=== PATIENT | female | born 1985 | race Hispanic/Latino ===

== ENCOUNTER 2020-01-07 17:32 | Emergency (ER) | payer SELFPAY ==
[2020-01-07 18:24] LABS: Urine Specific Gravity >1.030 (1.005-1.030)
[2020-01-07 18:24] LABS: Urine Blood NEGATIVE (NEG); Urine Glucose TRACE (NEG); Urine Protein 3+ (NEG); Urine Specific Gravity >1.030 (1.005-1.030)
[2020-01-07 18:27] LABS: Absolute Lymphocytes (CBC) 1.3 K/uL (0.7-4.9); Basophils % 0.5 % (0-1.3); Hematocrit 41.1 % (36.0-45.0); Lymphocytes % 11.3 % (15.3-44.8); MPV 8.8 fL (7.6-11.3); RBC Red Blood Cell Count 4.53 M/uL (3.86-4.86)
[2020-01-07 18:29] LABS: Protime INR 1.1
[2020-01-07 18:52] LABS: ALT/SGPT 193 U/L (12-78); AST/SGOT 229 U/L (15-37); Albumin 3.1 g/dL (3.4-5.0); Alkaline Phosphatase 133 U/L (45-117); BUN Blood Urea Nitrogen 12 mg/dL (7-18); Bicarbonate 27 mmol/L (21-32); Bilirubin Direct 0.2 mg/dL (0-0.2); Bilirubin Total 0.6 mg/dL (0.2-1.0); Glucose Level 303 mg/dL (74-106); Potassium 3.7 mmol/L (3.5-5.1); Protein, Total 7.3 g/dL (6.4-8.2); Sodium Level 136 mmol/L (136-145)
--- NOTE | 2020-01-07 19:28 | ER ---
Nurse's Notes [facility] Name: Mallika Martinez Age: 34 yrs Sex: Female : 1985 Arrival Date: 01/07/2020 Time: 17:42 Bed 18 Private MD: Diagnosis: Major depressive disorder, recurrent;Suicidal ideations;Type 2 diabetes mellitus Presentation: 01/07 17:52 Transition of care: patient was not received from another setting of care. Onset of ca1 symptoms was January 07, 2020. Risk Assessment: Do you want to hurt yourself or someone else? Patient reports desire/thoughts of hurting themselves or someone else. Provider notified. Initial Sepsis Screen: Does the patient meet any 2 criteria? No. Patient's initial sepsis screen is negative. Does the patient have a suspected source of infection? No. Patient's initial sepsis screen is negative. Care prior to arrival: None. 17:52 Method Of Arrival: Ambulatory ca1 17:52 Acuity: MANOLO 2 ca1 17:53 Presenting complaint: Brought in by [facility] [place] [place] States, "pt had verbal ca1 altercation with all day, wants divorce, they have been having marital problems for some time now. 45 minutes ago, pt went to their house kitchen and grabbed a packaging coordinator from 1 of the drawers. Her 16 yo son witness and stopped her from getting the knife. She then told her son that is going to kill herself. The son called us and told us that his mom was going to kill herself. We came and the pt confirmed what the son reported. Pt has no medical insurance. Pt is a [facility] pt, has a history of depression, and was prescribed and taking meds. She reports she ran out of those meds and she doesn't have a scheduled appointment any time soon. [employer]: 18:22 LMP 12/22/2019 ca1 Historical: - Allergies: 18:22 No Known Allergies; ca1 - Home Meds: 18:22 Metformin Oral [Active]; Insulin: Novolin R Sub-Q [Active]; Insulin: Novolin N Sub-Q ca1 [Active]; Hydroxyzine Oral [Active]; trazodone Oral [Active]; paroxetine oral oral [Active]; - PMHx: 18:22 Anemia; Diabetes - NIDDM; Diabetes - IDDM; HEART FAILURE; Hypertension; ca1 - PSHx: 18:22 ; ca1 - Immunization history:: Adult Immunizations up to date, Flu vaccine is not up to date. - Coronavirus screen:: The patient has NOT traveled to [place] in the past 14 days. The patient has NOT had contact with known/suspected case of Coronavirus?. - Social history:: Smoking status: Patient denies any tobacco usage or history of. Patient uses alcohol, but reports only rare drinking. admits to "couple of beers" a day. Patient/guardian denies using street drugs, IV drugs. - Ebola Screening: : Patient negative for fever greater than or equal to 101.5 degrees Fahrenheit, and additional compatible Ebola Virus Disease symptoms Patient denies exposure to infectious person Patient denies travel to an Ebola-affected area in the 21 days before illness onset No symptoms or risks identified at this time. Screenin:23 Abuse screen: Denies threats or abuse. Denies injuries from another. Nutritional ca1 screening: No deficits noted. Tuberculosis screening: No symptoms or risk factors identified. Fall Risk IV access (20 points). Assessment: 18:23 General: Appears in no apparent distress. comfortable, Behavior is calm, cooperative, ca1 appropriate for age. Pain: Denies pain. Neuro: Level of Consciousness is awake, alert, obeys commands, Oriented to person, place, time, situation, Appropriate for age. Cardiovascular: Heart tones S1 S2 present Capillary refill < 3 seconds. Respiratory: Airway is patent Respiratory effort is even, unlabored, Respiratory pattern is regular, symmetrical, Breath sounds are clear bilaterally. GI: Abdomen is round non-distended, Bowel sounds present X 4 quads. Abd is soft and non tender X 4 quads. : No deficits noted. No signs and/or symptoms were reported regarding the genitourinary system. EENT: No deficits noted. No signs and/or symptoms were reported regarding the EENT system. Derm: Skin is intact, is healthy with good turgor, Skin is pink, warm \\T\\ dry. Musculoskeletal: Circulation, motion, and sensation intact. Capillary refill < 3 seconds. 18:28 Reassessment: Pt states, "I was going to kill myself, but I am not thinking about it ca1 anymore right now". 19:10 Reassessment: Patient appears in no apparent distress at this time. Patient and/or family updated on plan of care and expected duration. Pain level reassessed. Patient is alert, oriented x 3, equal unlabored respirations, skin warm/dry/pink. 19:51 Reassessment: Patient appears in no apparent distress at this time. No changes from previously documented assessment. Patient and/or family updated on plan of care and expected duration. Pain level reassessed. Patient is alert, oriented x 3, equal unlabored respirations, skin warm/dry/pink. Psych: 18:26 Subjective: Patient's mood is sad, Delusions are denied, Hallucinations are denied ca1 Having thoughts of suicide. Plan for suicide is "is take a knife and stab myself", as pt stated. Objective: Patient is cooperative, Speech is normal, Affect is appropriate. Interventions: Removed personal items and placed in bag. Patient placed in hospital gown. Searched person for dangerous items. Urine collected and sent for urine drug test. Belonging list filled out. Suicide Risk Assessment: Sad Person Scale: Sex of patient: Female: Score 0 points. Age of patient: Score 1 point if patient 15-34. Depression: Score 1 point if signs of depression are present. Previous Attempt: Score 0 point if patient has not previously attempted suicide. Substance Abuse: Score 0 point if patient does not abuse alcohol or drugs. Rational Thinking: Score 0 point if patient has rational thinking. Social Support: Score 1 point if social support is lacking and/or unavailable. Organized Plan: Score 1 point if patient had a plan in place. Relationship: Score 1 point if patient is , , , or for a single male Chronic Sickness: Score 0 point if patient does not have a chronic illness, debilitating, or severe disorder. TOTAL POINTS: If total points are 5-6, proposed clinical action is to strongly consider hospitalization, depending upon confidence in the follow-up arrangement. Implement suicide precautions. Safety Checks: Personal items have been removed. Door is open. Pt denies substance abuse. 19:05 Commitment: Patient will be a voluntary commitment. Vital Signs: 18:22 BP 128 / 89; Pulse 89; Resp 16 S; Pulse Ox 96% on R/A; Weight 97.52 kg (R); Height 5 ca1 ft. 3 in. (160.02 cm) (R); Pain 0/10; 19:53 BP 125 / 87; Pulse 83; Resp 18; Pulse Ox 99% on R/A; 18:22 Body Mass Index 38.09 (97.52 kg, 160.02 cm) [facility] ED Course: 17:42 Patient arrived in ED. bd 17:43 Willian Cardoso MD is Attending Physician. nir 17:52 Bhumika Barrett, RN is Primary Nurse. [facility] 17:53 Triage completed. [facility] 18:00 Safety Checks: Personal items have been removed. The door is open or patient has been ca1 placed in a hallway bed/chair. Sitter present at this time. 18:15 No provider procedures requiring assistance completed. Initial lab(s) drawn, by sd, by [facility] EMS personnel. Inserted saline lock: 20 gauge in left antecubital area, using aseptic technique. Blood collected. 18:22 Arm band placed on right wrist. EKG completed in triage. Results shown to MD. [facility] 18:23 Patient has correct armband on for positive identification. Placed in gown. Bed in low ca1 position. Call light in reach. Side rails up X 1. Valuables inventory done. See valuables checklist. Warm blanket given. 19:54 IV discontinued, intact, bleeding controlled, No redness/swelling at site. Administered Medications: 19:36 Drug: Paxil 20 mg Route: PO; 19:52 Follow up: Response: No adverse reaction 19:36 Drug: Insulin Regular Human 7 units {Co-Signature: rv (Neil Moses RN).} Route: IVP; Site: left antecubital; 19:52 Follow up: Response: No adverse reaction Outcome: 19:22 Discharge ordered by . [facility] 19:54 Discharged to home ambulatory. 19:54 Condition: stable 19:54 Discharge instructions given to patient, Instructed on discharge instructions, follow up and referral plans. medication usage, POC Demonstrated understanding of instructions, follow-up care, medications, POC Prescriptions given X 1. 19:56 Patient left the ED. Signatures: Lyudmila Cantu Corey, MD MD cha Habalo, Winsy Bhumika Barrett RN RN ca1 Neil briscoe Corrections: (The following items were deleted from the chart) 19:52 19:10 Reassessment: Patient appears in no apparent distress at this time. Patient wh and/or family updated on plan of care and expected duration. Pain level reassessed. Patient is alert, oriented x 3, equal unlabored respirations, skin warm/dry/pink. wh
--- NOTE | 2020-01-07 19:29 | EDPHYS ---
Physician Documentation [facility] Name: Mallika Martinez Age: 34 yrs Sex: Female : 1985 Arrival Date: 01/07/2020 Time: 17:42 Bed 18 Private MD: ED Physician Willian Cardoso HPI: 01/07 19:09 This 34 yrs old Female presents to ER via Ambulatory with complaints of nir Suicidal Ideation. 19:09 The patient presents to the emergency department with depression, a history of a nir suicide gesture, cut herself, suicide ideation. Onset: The symptoms/episode began/occurred just prior to arrival. Past psychiatric history: Prior diagnosis: depression, Psychiatric medications include: Paxil. Associated signs and symptoms: The patient has no apparent associated signs or symptoms. Severity of symptoms: At their worst the symptoms were mild moderate in the emergency department the symptoms have improved markedly. The patient has not experienced similar symptoms in the past. 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 - Coronavirus screen:: The patient has NOT traveled to [place] in the past 14 days. The patient has NOT had contact with known/suspected case of Coronavirus?. - Social history:: Smoking status: Patient denies any tobacco usage or history of. Patient uses alcohol, but reports only rare drinking. admits to "couple of beers" a day. Patient/guardian denies using street drugs, IV drugs. - Ebola Screening: : Patient negative for fever greater than or equal to 101.5 degrees Fahrenheit, and additional compatible Ebola Virus Disease symptoms Patient denies exposure to infectious person Patient denies travel to an Ebola-affected area in the 21 days before illness onset No symptoms or risks identified at this time. ROS: 19:10 Constitutional: Negative for fever, chills, and weight loss, Eyes: Negative for injury, nir pain, redness, and discharge, ENT: Negative for injury, pain, and discharge, Neck: Negative for injury, pain, and swelling, Cardiovascular: Negative for chest pain, palpitations, and edema, Respiratory: Negative for shortness of breath, cough, wheezing, and pleuritic chest pain, Abdomen/GI: Negative for abdominal pain, nausea, vomiting, diarrhea, and constipation, Back: Negative for injury and pain, : Negative for injury, bleeding, discharge, and swelling, MS/Extremity: Negative for injury and deformity, Skin: Negative for injury, rash, and discoloration, Neuro: Negative for headache, weakness, numbness, tingling, and seizure, Allergy/Immunology: Negative for hives, rash, and allergies, Endocrine: Negative for neck swelling, polydipsia, polyuria, polyphagia, and marked weight changes, Hematologic/Lymphatic: Negative for swollen nodes, abnormal bleeding, and unusual bruising. 19:10 Psych: Positive for depression, suicide gesture, suicidal ideation. 19:11 Psych: Positive for pt in a dysfunctional relationship, not faithful,argue all nir the time. pt knows it not a sustainable relationation. Exam: 19:10 Constitutional: This is a well developed, well nourished patient who is awake, alert, nir and in no acute distress. Head/Face: Normocephalic, atraumatic. Eyes: Pupils equal round and reactive to light, extra-ocular motions intact. Lids and lashes normal. Conjunctiva and sclera are non-icteric and not injected. Cornea within normal limits. Periorbital areas with no swelling, redness, or edema. ENT: Nares patent. No nasal discharge, no septal abnormalities noted. Tympanic membranes are normal and external auditory canals are clear. Oropharynx with no redness, swelling, or masses, exudates, or evidence of obstruction, uvula midline. Mucous membranes moist. Neck: Trachea midline, no thyromegaly or masses palpated, and no cervical lymphadenopathy. Supple, full range of motion without nuchal rigidity, or vertebral point tenderness. No Meningismus. Chest/axilla: Normal chest wall appearance and motion. Nontender with no deformity. No lesions are appreciated. Cardiovascular: Regular rate and rhythm with a normal S1 and S2. No gallops, murmurs, or rubs. Normal PMI, no JVD. No pulse deficits. Respiratory: Lungs have equal breath sounds bilaterally, clear to auscultation and percussion. No rales, rhonchi or wheezes noted. No increased work of breathing, no retractions or nasal flaring. Abdomen/GI: Soft, non-tender, with normal bowel sounds. No distension or tympany. No guarding or rebound. No evidence of tenderness throughout. Back: No spinal tenderness. No costovertebral tenderness. Full range of motion. Skin: Warm, dry with normal turgor. Normal color with no rashes, no lesions, and no evidence of cellulitis. MS/ Extremity: Pulses equal, no cyanosis. Neurovascular intact. Full, normal range of motion. Neuro: Awake and alert, GCS 15, oriented to person, place, time, and situation. Cranial nerves II-XII grossly intact. Motor strength 5/5 in all extremities. Sensory grossly intact. Cerebellar exam normal. Normal gait. Psych: Awake, alert, with orientation to person, place and time. Behavior, mood, and affect are within normal limits. 19:10 Musculoskeletal/extremity: DVT Exam: No signs of deep vein thrombosis. no pain, no swelling, no tenderness, negative Homans' sign noted on exam, no appreciated bluish discoloration, no erythema, no increased warmth. Vital Signs: 18:22 BP 128 / 89; Pulse 89; Resp 16 S; Pulse Ox 96% on R/A; Weight 97.52 kg (R); Height 5 ca1 ft. 3 in. (160.02 cm) (R); Pain 0/10; 19:53 BP 125 / 87; Pulse 83; Resp 18; Pulse Ox 99% on R/A; wh 18:22 Body Mass Index 38.09 (97.52 kg, 160.02 cm) ca1 MDM: 17:43 Patient medically screened. [facility] 19:21 Data reviewed: vital signs, nurses notes, lab test result(s), EKG, radiologic studies. 01/07 17:44 Order name: Acetaminophen [facility] 01/07 17:44 Order name: Basic Metabolic Panel 01/07 17:44 Order name: CBC with Diff 01/07 17:44 Order name: ETOH Level 01/07 17:44 Order name: Hepatic Function [facility] 01/07 17:44 Order name: PT-INR [facility] 01/07 17:44 Order name: Ptt, Activated [facility] 01/07 17:44 Order name: Salicylate [facility] 01/07 17:44 Order name: Urine Drug Screen [facility] 01/07 18:09 Order name: Urine Dipstick--Ancillary (enter results) 01/07 18:10 Order name: Urine --Ancillary (enter results) 01/07 18:25 Order name: Urine Dipstick-Ancillary; Complete Time: 19:04 [facility] 01/07 18:25 Order name: Urine --Ancillary; Complete Time: 19:04 [facility] 01/07 18:29 Order name: CBC with Automated Diff; Complete Time: 19:04 [facility] 01/07 17:44 Order name: Urine Test (obtain specimen); Complete Time: 18:29 [facility] 01/07 17:44 Order name: EKG; Complete Time: 17:48 [facility] 01/07 17:44 Order name: EKG - Nurse/Tech; Complete Time: 18:29 [facility] 01/07 17:44 Order name: IV Saline Lock; Complete Time: 18:29 [facility] 01/07 17:44 Order name: Labs collected and sent; Complete Time: 18:29 [facility] 01/07 17:44 Order name: Urine Dipstick-Ancillary (obtain specimen); Complete Time: 18:29 [facility] 01/07 18:35 Order name: Protime (+INR); Complete Time: 19:04 [facility] 01/07 18:35 Order name: PTT, Activated Partial Thromb; Complete Time: 19:04 [facility] 01/07 18:52 Order name: Salicylates Level; Complete Time: 19:04 [facility] 01/07 18:53 Order name: Basic Metabolic Panel; Complete Time: 19:04 [facility] 01/07 18:53 Order name: Liver (Hepatic) Function; Complete Time: 19:04 [facility] 01/07 18:53 Order name: Acetaminophen Level; Complete Time: 19:04 EDMS Administered Medications: 19:36 Drug: Paxil 20 mg Route: PO; 19:52 Follow up: Response: No adverse reaction 19:36 Drug: Insulin Regular Human 7 units {Co-Signature: rv (Neil Moses RN).} Route: IVP; Site: left antecubital; 19:52 Follow up: Response: No adverse reaction Disposition: 01/07/20 19:22 Discharged to Home. Impression: Major depressive disorder, recurrent, Suicidal ideations, Type 2 diabetes mellitus. - Condition is Stable. - Discharge Instructions: Type 2 Diabetes Mellitus, Diagnosis, Adult, Suicidal Feelings: How to Help Yourself, Helping Someone Who is Suicidal, Stress and Stress Management, Type 2 Diabetes Mellitus, Diagnosis, Adult, [id number], Major Depressive Disorder, [id number], Major Depressive Disorder, Type 2 Diabetes Mellitus, Self Care, Adult, Type 2 Diabetes Mellitus, Self Care, Adult, [id number]. - Prescriptions for Paxil 20 mg Oral Tablet - take 1 tablet by ORAL route once daily .; 20 tablet. - Medication Reconciliation Form, Thank You Letter, Antibiotic Education, Prescription Opioid Use form. - Follow up: Private Physician; When: 2 - 3 days; Reason: Recheck today's complaints, Continuance of care, Re-evaluation by your physician. - Problem is new. - Symptoms have improved. Signatures: Dispatcher [employer] EDNY Willian Cardoso MD MD cha Habalo, Winsy Nena, REE Bai RN ca1 Neil Moses RN rv Corrections: (The following items were deleted from the chart) 19:25 19:22 01/07/2020 19:22 Discharged to Home. Impression: Major depressive disorder, nir recurrent; Suicidal ideations. Condition is Stable. Forms are Medication Reconciliation Form, Thank You Letter, Antibiotic Education, Prescription Opioid Use. Follow up: Private Physician; When: 2 - 3 days; Reason: Recheck today's complaints, Continuance of care, Re-evaluation by your physician. Problem is new. Symptoms have improved. [facility] 19:56 19:25 01/07/2020 19:22 Discharged to Home. Impression: Major depressive disorder, wh recurrent; Suicidal ideations; Type 2 diabetes mellitus. Condition is Stable. Discharge Instructions: Suicidal Feelings: How to Help Yourself, Helping Someone Who is Suicidal, Stress and Stress Management, Major Depressive Disorder, [id number], Major Depressive Disorder, Type 2 Diabetes Mellitus, Diagnosis, Adult, Type 2 Diabetes Mellitus, Diagnosis, Adult, [id number], Type 2 Diabetes Mellitus, Self Care, Adult, Type 2 Diabetes Mellitus, Self Care, Adult, [id number]. Prescriptions for Paxil 20 mg Oral Tablet - take 1 tablet by ORAL route once daily .; 20 tablet. and Forms are Medication Reconciliation Form, Thank You Letter, Antibiotic Education, Prescription Opioid Use. Follow up: Private Physician; When: 2 - 3 days; Reason: Recheck today's complaints, Continuance of care, Re-evaluation by your physician. Problem is new. Symptoms have improved. nir
[2020-01-07] MEDS ORDERED: PARoxetine HCl 10 MG TAB ONE (19:32)
[2020-01-07] MEDS ORDERED: INSULIN -REGULAR HUMAN 50 UNIT/0.5 ML ML ONE (19:35)
[2020-01-07 20:16] LABS: Barbiturates NEGATIVE (NEGATIVE); Benzodiazepines NEGATIVE (NEGATIVE); Cocaine NEGATIVE (NEGATIVE); METHAMPHETAM NEGATIVE (NEGATIVE); Methadone NEGATIVE (NEGATIVE); Opiates NEGATIVE (NEGATIVE); Phencyclidine NEGATIVE (NEGATIVE); THC Cannibis NEGATIVE (NEGATIVE)
[2020-01-07 22:55] VITALS: BP 125/87; O2SAT 99
--- NOTE | 2020-01-08 10:01 | EKG ---
Test Date: 2020-01-07 Test Time: 17:46:19 Scales Inspector: MEASUREMENT RESULTS: Intervals: Rate: 78 NV: 126 QRSD: 84 QT: 372 QTc: 424 [place]: P: 13 NV: 126 QRS: 58 T: -10 INTERPRETIVE STATEMENTS: Normal sinus rhythm T wave abnormality, consider anterior ischemia Abnormal ECG Compared to ECG 10/18/2017 23:34:58 T-wave abnormality now present Possible ischemia now present Electronically Signed On 01-08-20 10:00:23 DISC SANDER by Elgin Barrett
== END 2020-01-07 19:54 | disposition home or self-care (01) ==
LOC: ER 17:32 → ERHOLD 18:10 → UNDOADMIN 18:10 → ERHOLD 19:54
DX: F33.9 Major depressive disorder, recurrent, unspecified (principal); E11.9 Type 2 diabetes mellitus without complications; Z79.4 Long term (current) use of insulin; I10 Essential (primary) hypertension; I50.9 Heart failure, unspecified
CPT/HCPCS: 36415; 80048; 80076; 80307; 80320; 80329; 81003; 81025; 85025; 85610; 85730; 93005; 96374; 99284

== ENCOUNTER 2021-06-05 00:07 | Emergency (ER) | payer SELFPAY ==
[2021-06-05] MEDS ORDERED: LORazepam 2 MG/ML VIAL ONE (01:04)
[2021-06-05] MEDS ORDERED: LEVETIRACETAM 500 MG/5 ML VIAL IV ONE (01:12)
[2021-06-05] MEDS ORDERED: NA CHLORIDE 0.9% 100 ML ONE (01:12)
[2021-06-05 01:32] LABS: Barbiturates NEGATIVE (NEGATIVE); Benzodiazepines NEGATIVE (NEGATIVE); Cocaine NEGATIVE (NEGATIVE); METHAMPHETAM NEGATIVE (NEGATIVE); Methadone NEGATIVE (NEGATIVE); Opiates NEGATIVE (NEGATIVE); Phencyclidine NEGATIVE (NEGATIVE); THC Cannibis NEGATIVE (NEGATIVE)
[2021-06-05 01:46] LABS: Absolute Lymphocytes (CBC) 2.2 K/uL (0.7-4.9); Basophils % 0.8 % (0-1.3); Hematocrit 37.8 % (36.0-45.0); Lymphocytes % 20.7 % (15.3-44.8); MPV 8.2 fL (7.6-11.3); RBC Red Blood Cell Count 4.31 M/uL (3.86-4.86)
[2021-06-05 01:48] LABS: Protime INR 1.03
[2021-06-05 02:06] LABS: ALT/SGPT 137 U/L (12-78); AST/SGOT 103 U/L (15-37); Albumin 3.1 g/dL (3.4-5.0); Alkaline Phosphatase 111 U/L (45-117); BUN Blood Urea Nitrogen 13 mg/dL (7-18); Bicarbonate 26 mmol/L (21-32); Bilirubin Direct < 0.1 mg/dL (0-0.2); Bilirubin Total 0.3 mg/dL (0.2-1.0); Glucose Level 93 mg/dL (74-106); Potassium 3.2 mmol/L (3.5-5.1); Protein, Total 7.3 g/dL (6.4-8.2); Sodium Level 139 mmol/L (136-145); Troponin (Emerg Dept Use Only) < 0.02 ng/mL (0.0-0.045)
[2021-06-05 02:39] LABS: Urine Blood Negative (Negative); Urine Glucose Negative (Negative); Urine Protein 2+ (Negative); Urine Specific Gravity >=1.030 (1.005-1.030); Urine pH 5.5 (5.0-7.0)
[2021-06-05 03:21] LABS: Urine Specific Gravity/Preg >1.030 (1.005-1.030)
--- NOTE | 2021-06-05 04:02 | ER ---
Nurse's Notes [facility] Name: Mallika Martinez Age: 35 yrs Sex: Female : 1985 Arrival Date: 06/05/2021 Time: 00:20 Bed 25 Private MD: Diagnosis: Seizure Presentation: 06/05 00:21 Chief complaint: EMS states: Pt was working at [employer], her co-workers saw her go jb4 unconscious and caught her and assister her to the ground. Pt has been unresponsive since. Her initial b/p was 200/100, it returned to 130/90. Her BGL was 107. She responds only to painful stimuli. No meds were given, initiated 20g to the LAC. 00:21 Coronavirus screen: Client denies travel out of the [place] in the last 14 days. At this jb4 time, the client does not indicate any symptoms associated with coronavirus-19. Ebola Screen: No symptoms or risks identified at this time. Initial Sepsis Screen: Does the patient meet any 2 criteria? HR > 90 bpm. Yes Does the patient have a suspected source of infection? No. Patient's initial sepsis screen is negative. Risk Assessment: Do you want to hurt yourself or someone else? Patient reports no desire to harm self or others. Onset of symptoms was June 05, 2021. Transition of care: patient was not received from another setting of care. 00:21 Method Of Arrival: EMS: [facility] jb4 00:21 Acuity: MANOLO 3 jb4 Historical: - Allergies: 00:21 No Known Allergies; jb4 - Home Meds: 00:21 Hydroxyzine Oral [Active]; Insulin: Novolin N Sub-Q [Active]; Insulin: Novolin R Sub-Q jb4 [Active]; Metformin Oral [Active]; paroxetine Oral [Active]; Trazodone Oral [Active]; - PMHx: 00:21 Anemia; Diabetes - IDDM; HEART FAILURE; Hypertension; jb4 - PSHx: 00:21 None; jb4 - Immunization history:: Adult Immunizations unknown. - Social history:: Smoking status: Patient denies any tobacco usage or history of. Patient/guardian denies using alcohol, street drugs. Screenin:30 Abuse screen: Denies threats or abuse. Nutritional screening: No deficits noted. jb4 Tuberculosis screening: No symptoms or risk factors identified. Fall Risk None identified. Assessment: 00:21 General: Appears in no apparent distress. Behavior is unresponsive. Pain: Unable to use jb4 pain scale. Patient is unresponsive. Neuro: Level of Consciousness is unresponsive. Cardiovascular: Patient's skin is warm and dry. Respiratory: Airway is patent Respiratory effort is even, unlabored, Respiratory pattern is regular, symmetrical. GI: No signs and/or symptoms were reported involving the gastrointestinal system. : No signs and/or symptoms were reported regarding the genitourinary system. EENT: Derm: Skin is intact, Skin is pink, warm \T\ dry. 00:43 Reassessment: Pt noted to be having a seizure, Provider notified, received verbal order jb4 for 2mg of Ativan IV. seizure stopped upon administration. Seizure lasted approximately 2 minutes. 01:30 Reassessment: Pt is resting in bed with eyes closed, respirations are even and jb4 unlabored with no s/s of pain or distress noted, family is at the bedside. No further seizures noted. 02:30 Reassessment: Patient appears in no apparent distress at this time. No changes from jb4 previously documented assessment. Patient and/or family updated on plan of care and expected duration. Pain level reassessed. 03:30 Reassessment: Patient appears in no apparent distress at this time. No changes from jb4 previously documented assessment. Patient and/or family updated on plan of care and expected duration. Pain level reassessed. 04:35 Reassessment: Patient appears in no apparent distress at this time. Patient and/or jb4 family updated on plan of care and expected duration. Pain level reassessed. Patient is alert, oriented x 3, equal unlabored respirations, skin warm/dry/pink. Patient states feeling better. Patient states symptoms have improved. Vital Signs: 00:21 BP 155 / 90; Pulse 96; Resp 16; Temp 98.7(A); Pulse Ox 98% on R/A; Weight 127.01 kg; jb4 Height 5 ft. 2 in. (157.48 cm) (R); Pain 0/10; 01:00 BP 123 / 75; Pulse 87; Resp 16; Pulse Ox 99% on R/A; jb4 02:00 BP 113 / 76; Pulse 96; Resp 15; Pulse Ox 95% on R/A; jb4 03:30 BP 113 / 69; Pulse 90; Resp 20; Pulse Ox 96% on R/A; jb4 04:00 BP 116 / 67; Pulse 90; Resp 16; Pulse Ox 96% on R/A; jb4 00:21 Body Mass Index 51.21 (127.01 kg, 157.48 cm) jb4 ED Course: 00:20 Patient arrived in ED. jb4 00:21 Arm band placed on right wrist. jb4 00:28 Jhonatan Morales MD is Attending Physician. 7 00:30 Patient has correct armband on for positive identification. Bed in low position. Call jb4 light in reach. Side rails up X 1. 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 Pulse ox on. NIBP on. 00:37 Yamil Shoemaker RN is Primary Nurse. jb4 01:00 Maintain EMS IV. Dressing intact. Good blood return noted. Site clean \T\ dry. Gauge \T\ eliana 4 site: 20g LAC. 01:05 Chest Single View XRAY In Process Unspecified. EDMS 01:18 Triage completed. jb4 03:00 CT Head Brain wo Cont In Process Unspecified. EDMS 04:02 Danny Boland MD is Referral Physician. 7 04:36 No provider procedures requiring assistance completed. IV discontinued, intact, jb4 bleeding controlled, No redness/swelling at site. Pressure dressing applied. Administered Medications: 00:45 Drug: Ativan (LORazepam) 2 mg Route: IVP; Site: left antecubital; jb4 00:47 Follow up: Response: No adverse reaction; Marked relief of symptoms jb4 01:30 Drug: Keppra (levETIRAcetam) 1000 mg Route: IV; Rate: calculated rate; Site: left jb4 antecubital; 01:45 Follow up: Response: No adverse reaction; IV Status: Completed infusion; IV Intake: jb4 100ml 04:25 Drug: Rocephin (cefTRIAXone) 1 grams Route: IV; Rate: per protocol; Site: left jb4 antecubital; 04:30 Follow up: Response: No adverse reaction; Medication administered at discharge.; IV jb4 Status: Completed infusion; IV Intake: 10ml Intake: 01:45 IV: 100ml; Total: 100ml. jb4 04:30 IV: 10ml; Total: 110ml. jb4 Outcome: 04:02 Discharge ordered by . mh7 04:37 Discharged to home via wheelchair, with family. jb4 04:37 Condition: stable 04:37 Discharge instructions given to patient, family, Instructed on discharge instructions, follow up and referral plans. medication usage, Demonstrated understanding of instructions, follow-up care, medications. 04:37 Patient left the ED. jb4 Signatures: Dispatcher [employer] EDYamil Juarez RN RN jb4 Jhonatan Morales MD MD mh7
--- NOTE | 2021-06-05 04:03 | EDPHYS ---
Physician Documentation [facility] Name: Mallika Martinez Age: 35 yrs Sex: Female : 1985 Arrival Date: 06/05/2021 Time: 00:20 Bed 25 Private MD: ED Physician Jhonatan Morales HPI: 06/05 01:11 This 35 yrs old Female presents to ER via Unassigned with complaints of mh7 Syncope. 01:12 The patient has experienced syncope, became unresponsive, collapsed. Onset: The mh7 symptoms/episode began/occurred today. Duration: This was a single episode, that lasted an unknown period of time. Context: the episode(s) was witnessed, by co-worker(s), occurred at work, occurred while the patient was working. Associated injury: The patient did not suffer any apparent associated injury. Associated signs and symptoms: Pertinent positives: Altered mental Status, Pertinent negatives:. Current symptoms: decreased level of consciousness, is arousable but tired. 01:12 EMS reports syncopal episode at work tonight. Family reports similar issue in the past. mh7 Witnessed seizure in the ED by nursing staff. Family reports that she has a history of seizures but is not taking medication.. Historical: - Allergies: 00:21 No Known Allergies; jb4 - Home Meds: 00:21 Hydroxyzine Oral [Active]; Insulin: Novolin N Sub-Q [Active]; Insulin: Novolin R Sub-Q jb4 [Active]; Metformin Oral [Active]; paroxetine Oral [Active]; Trazodone Oral [Active]; - PMHx: 00:21 Anemia; Diabetes - IDDM; HEART FAILURE; Hypertension; jb4 - PSHx: 00:21 None; jb4 - Immunization history:: Adult Immunizations unknown. - Social history:: Smoking status: Patient denies any tobacco usage or history of. Patient/guardian denies using alcohol, street drugs. ROS: 01:12 Unable to obtain ROS due to altered mental status. 7 Exam: 01:12 Head/Face: Normocephalic, atraumatic. Eyes: Pupils equal round and reactive to light, mh7 extra-ocular motions intact. Lids and lashes normal. Conjunctiva and sclera are non-icteric and not injected. Cornea within normal limits. Periorbital areas with no swelling, redness, or edema. Neck: Trachea midline, no thyromegaly or masses palpated, and no cervical lymphadenopathy. Supple, full range of motion without nuchal rigidity, or vertebral point tenderness. No Meningismus. Chest/axilla: Normal chest wall appearance and motion. Nontender with no deformity. No lesions are appreciated. Cardiovascular: Regular rate and rhythm with a normal S1 and S2. No gallops, murmurs, or rubs. Normal PMI, no JVD. No pulse deficits. Respiratory: Lungs have equal breath sounds bilaterally, clear to auscultation and percussion. No rales, rhonchi or wheezes noted. No increased work of breathing, no retractions or nasal flaring. Abdomen/GI: Soft, non-tender, with normal bowel sounds. No distension or tympany. No guarding or rebound. No evidence of tenderness throughout. Back: No spinal tenderness. No costovertebral tenderness. Full range of motion. Skin: Warm, dry with normal turgor. Normal color with no rashes, no lesions, and no evidence of cellulitis. MS/ Extremity: Pulses equal, no cyanosis. Neurovascular intact. Full, normal range of motion. 01:12 Constitutional: The patient appears in no acute distress, AMS 01:12 Neuro: Orientation: unable to test, the patient is post-ictal, Mentation: unable to test, the patient is post-ictal, Memory: unable to test, the patient is post-ictal, Cranial nerves: unable to test, the patient is post-ictal, Cerebellar function: unable to test, the patient is post-ictal, Motor: unable to test, the patient is post-ictal, Sensation: unable to test, the patient is post-ictal, Gait: not tested. seizure activity, is not currently displayed, but the patient is post-ictal, Abnormal movements: there are no abnormal movements. Vital Signs: 00:21 BP 155 / 90; Pulse 96; Resp 16; Temp 98.7(A); Pulse Ox 98% on R/A; Weight 127.01 kg; jb4 Height 5 ft. 2 in. (157.48 cm) (R); Pain 0/10; 01:00 BP 123 / 75; Pulse 87; Resp 16; Pulse Ox 99% on R/A; jb4 02:00 BP 113 / 76; Pulse 96; Resp 15; Pulse Ox 95% on R/A; jb4 03:30 BP 113 / 69; Pulse 90; Resp 20; Pulse Ox 96% on R/A; jb4 04:00 BP 116 / 67; Pulse 90; Resp 16; Pulse Ox 96% on R/A; jb4 00:21 Body Mass Index 51.21 (127.01 kg, 157.48 cm) 4 MDM: 04:00 Differential Diagnosis: cardiac arrhythmia, drug effect, emotional response, idiopathic mh7 syncope, pseudo seizure, seizure, vasovagal episode. Data reviewed: vital signs, nurses notes, EMS record, lab test result(s), cardiac enzymes, CBC, electrolytes, urinalysis, urine drug screen, UPT: negative EKG, radiologic studies, CT scan, plain films. Data interpreted: Pulse oximetry: on room air is 96 %. Interpretation: normal. Counseling: I had a detailed discussion with the patient and/or guardian regarding: the historical points, exam findings, and any diagnostic results supporting the discharge/admit diagnosis, lab results, radiology results, the need for outpatient follow up, a neurologist, to return to the emergency department if symptoms worsen or persist or if there are any questions or concerns that arise at home. Response to treatment: the patient's symptoms have resolved after treatment, the patient's blood pressure is in an acceptable range, mental status has returned to baseline, the patient no longer shows bradycardia, the patient is not short of breath, the patient is not tachycardic, the patient's pain is gone, the patient's temperature has normalized. 04:02 Patient medically screened. 06/05 00:35 Order name: Acetaminophen; Complete Time: :06/05 00:35 Order name: Basic Metabolic Panel; Complete Time: : 06/05 00:35 Order name: CBC with Diff; Complete Time: 02:06/05 00:35 Order name: ETOH Level; Complete Time: : 06/05 00:35 Order name: Hepatic Function; Complete Time: : 06/05 00:35 Order name: PT-INR; Complete Time: 06/05 00:35 Order name: Ptt, Activated; Complete Time: 06/05 00:35 Order name: Salicylate; Complete Time: 02:26 [facility] 06/05 00:35 Order name: Urine Drug Screen; Complete Time: 02:03 [facility] 06/05 00:36 Order name: Troponin (emerg Dept Use Only); Complete Time: 02:26 [facility] 06/05 02:39 Order name: Urine Dipstick-Ancillary; Complete Time: 02:41 [facility] 06/05 02:40 Order name: UA MICROSCOPIC [facility] 06/05 02:41 Order name: Urine --Ancillary (enter results); Complete Time: 03:51 oe 06/05 04:36 Order name: Urine Culture [facility] 06/05 00:35 Order name: EKG; Complete Time: 00:36 [facility] 06/05 00:35 Order name: EKG - Nurse/Tech; Complete Time: 01:14 [facility] 06/05 00:35 Order name: IV Saline Lock; Complete Time: 01:14 [facility] 06/05 00:35 Order name: Labs collected and sent; Complete Time: 01:14 [facility] 06/05 00:35 Order name: Urine Dipstick-Ancillary (obtain specimen); Complete Time: 01:14 [facility] 06/05 00:35 Order name: Urine Test (obtain specimen); Complete Time: 01:14 [facility] 06/05 00:35 Order name: Accucheck Blood Glucose; Complete Time: 02:08 [facility] 06/05 00:36 Order name: Chest Single View XRAY [facility] 06/05 02:27 Order name: CT Head Brain wo Cont [facility] Administered Medications: 00:45 Drug: Ativan (LORazepam) 2 mg Route: IVP; Site: left antecubital; 4 00:47 Follow up: Response: No adverse reaction; Marked relief of symptoms jb4 01:30 Drug: Keppra (levETIRAcetam) 1000 mg Route: IV; Rate: calculated rate; Site: left [facility] antecubital; 01:45 Follow up: Response: No adverse reaction; IV Status: Completed infusion; IV Intake: jb4 100ml 04:25 Drug: Rocephin (cefTRIAXone) 1 grams Route: IV; Rate: per protocol; Site: left [facility] antecubital; 04:30 Follow up: Response: No adverse reaction; Medication administered at discharge.; IV jb4 Status: Completed infusion; IV Intake: 10ml Disposition Summary: 06/05/21 04:02 Discharge Ordered Location: Home [facility] Problem: an acute exacerbation [facility] Symptoms: have improved [facility] Condition: Stable [facility] Diagnosis - Seizure [facility] Followup: [facility] - With: Private Physician - When: 1 - 2 days - Reason: Worsening of condition, Recheck today's complaints, Continuance of care, Re-evaluation by your physician Followup: [facility] - With: Danny Boland MD - When: 1 - 2 days - Reason: Worsening of condition, Recheck today's complaints Discharge Instructions: - Discharge Summary Sheet [facility] - Seizure, Adult, [id number] [facility] Forms: - Medication Reconciliation Form [facility] - Thank You Letter [facility] - Antibiotic Education [facility] - Prescription Opioid Use [facility] Prescriptions: - Keppra 500 mg Oral Tablet - take 1 tablet by ORAL route every 12 hours; 30 tablet; Refills: 0, Product [facility] Selection Permitted Signatures: Dispatcher [employer] Yamil Coulter RN RN jb4 Jhonatan Morales MD MD 7 Corrections: (The following items were deleted from the chart) 01:14 00:35 Suicide Screening (Shirley) ordered. 7 jb4
[2021-06-05 04:35] LABS: Urine Bacteria 20-50 /HPF (<20); Urine RBC NONE SEEN /HPF (NONE SEEN); Urine Urothelial Cells <5 /HPF (NONE SEEN)
[2021-06-05] MEDS ORDERED: CEFTRIAXONE/SWI 1gm 1 GM/10 ML SYR ONE (04:38)
[2021-06-05 04:42] VITALS: TEMP 98.7
[2021-06-05 04:48] VITALS: O2SAT 96
[2021-06-05 04:49] VITALS: BP 116/67
--- NOTE | 2021-06-05 11:25 | RAD REPORT ---
EXAM DESCRIPTION: CT - Head Brain Wo Cont - 06/05/2021 6:39 am CLINICAL HISTORY: The patient is 35 years old and is Female; Seizure;Syncope TECHNIQUE: Axial computed tomography images of the head/brain without intravenous contrast. Sagitt al and coronal reformatted images were created and reviewed. This CT exam was performed using one o r more of the following dose reduction techniques: automated exposure control, adjustment of the mA and/or kV according to patient size, and/or use of iterative reconstruction technique. COMPARISON: No relevant prior studies available. FINDINGS: Brain: Unremarkable. No hemorrhage. No significant white matter disease. No edema. Ventricles: Unremarkable. No ventriculomegaly. Bones/joints: Unremarkable. No acute fracture. Soft tissues: Unremarkable. Sinuses: Unremarkable as visualized. Mastoid air cells: Unremarkable as visualized. No mastoid effusion. IMPRESSION: No acute intracranial abnormality. Electronically signed by: Ang Blevins MD 06/05/2021 3:28 AM CDT Due to temporary technical issues with the PACS/Fluency reporting system, reports are being signed by the in house radiologist without review as a courtesy to ensure prompt reporting. The interpreting r adiologist is fully responsible for the content of the report.
--- NOTE | 2021-06-05 11:27 | RAD REPORT ---
EXAM DESCRIPTION: RAD - Chest Single View - 06/05/2021 1:05 am CLINICAL HISTORY: AMS TECHNIQUE: Single frontal view of the chest is submitted. COMPARISON: None available for comparison FINDINGS: Lungs: No focal consolidation. Pleura: No appreciable effusion. No pneumothorax. Heart: The cardiothoracic silhouette is within normal limits. Mediastinum: Unremarkable Bones: Intact Upper abdomen: Unremarkable IMPRESSION: No acute disease. Electronically signed by: Britton Smiley MD 06/05/2021 2:36 AM CDT Due to temporary technical issues with the PACS/Fluency reporting system, reports are being signed by the in house radiologist without review as a courtesy to ensure prompt reporting. The interpreting r adiologist is fully responsible for the content of the report.
--- NOTE | 2021-06-05 11:43 | EKG ---
Test Date: 2021-06-05 Test Time: 01:08:48 Dragline Engineer: JAON MEASUREMENT RESULTS: Intervals: Rate: 90 NE: 160 QRSD: 86 QT: 372 QTc: 455 Indian: P: 55 NE: 160 QRS: 70 T: 11 INTERPRETIVE STATEMENTS: Normal sinus rhythm Nonspecific T wave abnormality Abnormal ECG Compared to ECG 01/07/2020 17:46:19 Possible ischemia no longer present T-wave abnormality still present Electronically Signed On 06-05-21 11:41:59 CDT by Elgin Barrett
== END 2021-06-05 04:37 | disposition home or self-care (01) ==
LOC: ER 00:07
DX: R56.9 Unspecified convulsions (principal); I11.0 Hypertensive heart disease with heart failure; I50.9 Heart failure, unspecified; E11.9 Type 2 diabetes mellitus without complications; Z79.4 Long term (current) use of insulin
CPT/HCPCS: 36415; 70450; 71045; 80048; 80076; 80307; 80320; 80329; 81003; 81015; 81025; 84484; 85025; 85610; 85730; 87077; 87086; 87088; 87186; 93005; 96374; 96375; 99284; J0696; J1953

== ENCOUNTER 2021-06-19 23:42 | Emergency (ER) | payer SELFPAY ==
[2021-06-20 00:40] LABS: Absolute Lymphocytes (CBC) 2.8 K/uL (0.7-4.9); Hematocrit 38.5 % (36.0-45.0); Lymphocytes % 24.2 % (15.3-44.8); MPV 8.3 fL (7.6-11.3); RBC Red Blood Cell Count 4.35 M/uL (3.86-4.86)
[2021-06-20 00:44] LABS: Protime INR 1.05
[2021-06-20 00:51] LABS: Urine Blood Negative (Negative); Urine Glucose Negative (Negative); Urine Protein 1+ (Negative); Urine Specific Gravity >=1.030 (1.005-1.030)
[2021-06-20] MEDS ORDERED: LEVETIRACETAM 500 MG/5 ML VIAL IV ONE (00:51)
[2021-06-20] MEDS ORDERED: NA CHLORIDE 0.9% 100 ML ONE (00:51)
[2021-06-20] MEDS ORDERED: NA CHLORIDE 0.9% 1,000 ML ONE (00:51)
[2021-06-20 01:03] LABS: Urine Specific Gravity/Preg >1.030 (1.005-1.030)
[2021-06-20 01:08] LABS: Barbiturates NEGATIVE (NEGATIVE); Benzodiazepines NEGATIVE (NEGATIVE); Cocaine NEGATIVE (NEGATIVE); METHAMPHETAM NEGATIVE (NEGATIVE); Methadone NEGATIVE (NEGATIVE); Opiates NEGATIVE (NEGATIVE); Phencyclidine NEGATIVE (NEGATIVE); THC Cannibis NEGATIVE (NEGATIVE)
[2021-06-20 01:18] LABS: ALT/SGPT 93 U/L (12-78); AST/SGOT 73 U/L (15-37); Albumin 3.3 g/dL (3.4-5.0); Alkaline Phosphatase 115 U/L (45-117); BUN Blood Urea Nitrogen 13 mg/dL (7-18); Bicarbonate 29 mmol/L (21-32); Bilirubin Direct < 0.1 mg/dL (0-0.2); Bilirubin Total 0.3 mg/dL (0.2-1.0); Glucose Level 122 mg/dL (74-106); Potassium 4.1 mmol/L (3.5-5.1); Protein, Total 7.3 g/dL (6.4-8.2); Sodium Level 139 mmol/L (136-145)
--- NOTE | 2021-06-20 03:16 | EDPHYS ---
Physician Documentation [facility] Name: Mallika Martinez Age: 35 yrs Sex: Female : 1985 Arrival Date: 06/19/2021 Time: 23:46 Bed 5 Private MD: ED Physician Maurice Aj HPI: 06/20 00:10 This 35 yrs old Female presents to ER via EMS with complaints of Seizure. cp 00:10 The patient presents after having a single isolated seizure, that lasted an unknown cp period of time, the episode(s) was witnessed, by co-worker(s). Character of seizure(s): Loss of consciousness: the patient experienced loss of consciousness, Motor activity: generalized, shaking all over, Incontinence: none. Seizure onset: just prior to arrival. Context: occurred at work, Contributing factors: not taking prescribed Keppra. Seizure Hx: Last seizure: The patient's last seizure is unknown, Usual frequency: unknown, Seizure medications: Keppra. Associated injury: The patient did not suffer any apparent associated injury. EMS care: none. Current symptoms: confusion. Historical: - Allergies: 06/19 23:59 No Known Allergies; bb - Home Meds: 23:59 Hydroxyzine Oral [Active]; Insulin: Novolin N Sub-Q [Active]; Insulin: Novolin R Sub-Q bb [Active]; Metformin Oral [Active]; paroxetine Oral [Active]; Trazodone Oral [Active]; Keppra Oral [Active]; - PMHx: 23:59 Anemia; Diabetes - IDDM; HEART FAILURE; Hypertension; Seizure; bb - Immunization history:: Adult Immunizations unknown. - Social history:: Smoking status: unknown. ROS: 06/20 00:15 Constitutional: Negative for fever. cp 00:15 Cardiovascular: Negative for chest pain. cp 00:15 Abdomen/GI: Negative for abdominal pain. 00:15 Neuro: Positive for altered mental status, history of seizure, Negative for headache. 00:15 All other systems are negative. Exam: 00:20 Constitutional: The patient appears in no acute distress, awake, non-diaphoretic, cp non-toxic, well developed, well nourished, obese. 00:20 Head/Face: Normocephalic, atraumatic. cp 00:20 Eyes: Periorbital structures: appear normal, Pupils: equal, round, and reactive to light and accomodation, Extraocular movements: intact throughout, Conjunctiva: normal, no exudate, no injection, Sclera: no appreciated abnormality, Lids and lashes: appear normal, bilaterally. 00:20 ENT: External ear(s): are unremarkable, Ear canal(s): are normal, clear, TM's: dullness, bilaterally, Nose: is normal, Mouth: Lips: moist, Oral mucosa: moist. 00:20 Neck: ROM/movement: is normal, is supple, without pain, no range of motions limitations, no meningismus. 00:20 Chest/axilla: Inspection: normal, Palpation: is normal, no crepitus, no tenderness. 00:20 Cardiovascular: Rate: normal, Rhythm: regular, Edema: is not appreciated, JVD: is not appreciated. 00:20 Respiratory: the patient does not display signs of respiratory distress, Respirations: normal, no use of accessory muscles, no retractions, labored breathing, is not present, Breath sounds: are clear throughout, no decreased breath sounds, no stridor, no wheezing. 00:20 Abdomen/GI: Inspection: abdomen appears normal, Palpation: abdomen is soft and non-tender, in all quadrants. 00:20 Skin: no rash present. 00:20 Neuro: Orientation: to person, situation, Mentation: able to follow commands, confused, Motor: moves all fours, strength is normal, Sensation: no obvious gross deficits. 00:25 ECG was reviewed by the Attending Physician. cp Vital Signs: 06/19 23:56 BP 140 / 80; Pulse 80; Resp 16 S; Temp 97.5(TE); Pulse Ox 99% on R/A; Weight 99.79 kg bb (R); Height 5 ft. 4 in. (162.56 cm) (R); 06/20 02:48 BP 121 / 72; Pulse 77; Resp 18; Pulse Ox 98% ; ea 06/19 23:56 Body Mass Index 37.76 (99.79 kg, 162.56 cm) bb [place] Coma Score: 00:08 Eye Response: spontaneous(4). Verbal Response: oriented(5). Motor Response: obeys ea commands(6). Total: 15. MDM: 00:12 Patient medically screened. pkl 01:00 Differential diagnosis: cerebral vascular accident, drug overdose, cardiac arrhythmia, cp seizure. 01:30 Data reviewed: vital signs, nurses notes, lab test result(s), EKG. 03:16 ED course: Vital signs stable. Patient alert and oriented x3. Patient answering cp questions appropriately. Will discharge to home with family member for continued monitoring. Patient given follow-up instructions for a neurologist. 06/20 00:04 Order name: Acetaminophen; Complete Time: ea 06/20 01:20 Interpretation: Reviewed. 06/20 00:04 Order name: Basic Metabolic Panel; Complete Time: : ea 06/20 01:20 Interpretation: Normal except: GLUC 122. 06/20 00:04 Order name: CBC with Diff; Complete Time: ea 06/20 01:20 Interpretation: Normal except: WBC 11.70. 06/20 00:04 Order name: ETOH Level; Complete Time: ea 06/20 01:21 Interpretation: ETOH < 10; Reviewed. 06/20 00:04 Order name: Hepatic Function; Complete Time: ea 06/20 01:21 Interpretation: Normal except: AST 73; ALT 93; ALB 3.3; GLOB 4.0; A/G 0.8. 06/20 00:04 Order name: PT-INR; Complete Time: : ea 06/20 00:04 Order name: Ptt, Activated; Complete Time: ea 06/20 00:04 Order name: Salicylate; Complete Time: : ea 06/20 01:21 Interpretation: DAVID < 1.7; Reviewed. 06/20 00:04 Order name: Urine Drug Screen; Complete Time: ea 06/20 01:22 Interpretation: Reviewed. 06/20 00:17 Order name: CT Head Brain wo Cont 06/20 00:49 Order name: Urine Dipstick-Ancillary; Complete Time: :20 EDMS 06/20 01:21 Interpretation: Normal except: UKET 1+; UPROT 1+. 06/20 00:52 Order name: Urine --Ancillary (enter results); Complete Time: 01:20 mw2 06/20 01:22 Interpretation: Normal except: USPGRP >1.030. 06/20 00:04 Order name: EKG; Complete Time: 00:05 ea 06/20 00:04 Order name: EKG - Nurse/Tech; Complete Time: 00:25 ea 06/20 00:04 Order name: IV Saline Lock; Complete Time: 00:25 ea 06/20 00:04 Order name: Labs collected and sent; Complete Time: 00:25 ea 06/20 00:04 Order name: Urine Dipstick-Ancillary (obtain specimen); Complete Time: 00:42 ea EC:25 Rate is 77 beats/min. Rhythm is regular. NJ interval is prolonged at 154 msec. QRS cp interval is normal. QT interval is normal. T waves are Inverted in leads III, aVR, V3, V4. Interpreted by me. Reviewed by me. Administered Medications: 00:30 Drug: Keppra (levETIRAcetam) 1000 mg Route: IV; Rate: calculated rate; Site: right ea antecubital; 00:45 Follow up: IV Status: Completed infusion ea 00:42 Drug: NS 0.9% 1000 ml Route: IV; Rate: 1 bolus; Site: right antecubital; ea 03:30 Follow up: Response: No adverse reaction; IV Status: Completed infusion; IV Intake: ea 1000ml Disposition: 03:18 Chart complete. cp 03:39 Co-signature as Attending Physician, Maurice Aj MD. [email or web address] Disposition Summary: 06/20/21 03:16 Discharge Ordered Location: Home cp Problem: an ongoing problem cp Symptoms: have improved cp Condition: Stable cp Diagnosis - Other seizures cp Followup: cp - With: Danny Boland MD - When: 2 - 3 days - Reason: seizures Discharge Instructions: - Discharge Summary Sheet cp - Seizure, Adult cp Forms: - Medication Reconciliation Form cp - Thank You Letter cp - Antibiotic Education cp - Work release form cp - Prescription Opioid Use cp Signatures: Dispatcher [employer] EDMaurice Harris MD MD pkl Ballard, Brenda RN RN Willian Thibodeaux PA PA cp Antunez, Elena, RN RN ea Corrections: (The following items were deleted from the chart) 00:00 06/19 23:59 PMHx: Diabetes - NIDDM; chaparrita cheatham
--- NOTE | 2021-06-20 03:16 | ER ---
Nurse's Notes [facility] Name: Mallika Martinez Age: 35 yrs Sex: Female : 1985 Arrival Date: 06/19/2021 Time: 23:46 Bed 5 Private MD: Diagnosis: Other seizures Presentation: 06/19 23:56 Chief complaint: EMS states: they were toned out for report of pt having seizure at [facility] which she has had in the past as well, family reports pt does not take her Keppra as prescribed. Coronavirus screen: At this time, the client does not indicate any symptoms associated with coronavirus-19. Ebola Screen: No symptoms or risks identified at this time. Initial Sepsis Screen: Does the patient meet any 2 criteria? No. Patient's initial sepsis screen is negative. Does the patient have a suspected source of infection? No. Patient's initial sepsis screen is negative. Risk Assessment: Do you want to hurt yourself or someone else? Patient reports no desire to harm self or others. Onset of symptoms was June 19, 2021. 23:56 Method Of Arrival: EMS: [facility] 23:56 Acuity: MANOLO 3 bb Triage Assessment: 06/20 00:08 General: Appears in no apparent distress. Behavior is calm, cooperative, appropriate ea for age. Pain: Denies pain. Neuro: Level of Consciousness is awake, alert, obeys commands, Oriented to person, place, situation. Historical: - Allergies: 06/19 23:59 No Known Allergies; bb - Home Meds: 23:59 Hydroxyzine Oral [Active]; Insulin: Novolin N Sub-Q [Active]; Insulin: Novolin R Sub-Q bb [Active]; Metformin Oral [Active]; paroxetine Oral [Active]; Trazodone Oral [Active]; Keppra Oral [Active]; - PMHx: 23:59 Anemia; Diabetes - IDDM; HEART FAILURE; Hypertension; Seizure; bb - Immunization history:: Adult Immunizations unknown. - Social history:: Smoking status: unknown. Screenin/31 00:07 Abuse screen: Denies threats or abuse. Nutritional screening: No deficits noted. ea Tuberculosis screening: No symptoms or risk factors identified. Fall Risk None identified. Assessment: 00:44 General: urine test POC: negative. ak2 01:13 Reassessment: Patient and/or family updated on plan of care and expected duration. Pain ea level reassessed. Patient is alert, oriented x 3, equal unlabored respirations, skin warm/dry/pink. Returned from CT. 02:48 Reassessment: Patient and/or family updated on plan of care and expected duration. Pain ea level reassessed. Patient is alert, oriented x 3, equal unlabored respirations, skin warm/dry/pink. Vital Signs: 06/19 23:56 BP 140 / 80; Pulse 80; Resp 16 S; Temp 97.5(TE); Pulse Ox 99% on R/A; Weight 99.79 kg bb (R); Height 5 ft. 4 in. (162.56 cm) (R); 06/20 02:48 BP 121 / 72; Pulse 77; Resp 18; Pulse Ox 98% ; ea 06/19 23:56 Body Mass Index 37.76 (99.79 kg, 162.56 cm) bb [place] Coma Score: 00:08 Eye Response: spontaneous(4). Verbal Response: oriented(5). Motor Response: obeys ea commands(6). Total: 15. ED Course: 06/19 23:46 Patient arrived in ED. mw2 23:59 Triage completed. bb 23:59 Arm band placed on Patient placed in an exam room, on a stretcher, on pulse oximetry. bb 06/20 00:07 Selina Hirsch, RN is Primary Nurse. ea 00:07 Patient has correct armband on for positive identification. Bed in low position. Call ea light in reach. Side rails up X2. Seizure precautions initiated. monitoring coordinator on. Pulse ox on. NIBP on. 00:12 Maurice Aj MD is Attending Physician. pkl 00:16 Willian Foster PA is PHCP. cp 00:25 Inserted saline lock: 20 gauge in right antecubital area, using aseptic technique. ea Blood collected. 01:13 CT Head Brain wo Cont In Process Unspecified. EDMS 03:15 Danny Boland MD is Referral Physician. cp 03:31 No provider procedures requiring assistance completed. IV discontinued, intact, ea bleeding controlled, No redness/swelling at site. Pressure dressing applied. Administered Medications: 00:30 Drug: Keppra (levETIRAcetam) 1000 mg Route: IV; Rate: calculated rate; Site: right ea antecubital; 00:45 Follow up: IV Status: Completed infusion ea 00:42 Drug: NS 0.9% 1000 ml Route: IV; Rate: 1 bolus; Site: right antecubital; ea 03:30 Follow up: Response: No adverse reaction; IV Status: Completed infusion; IV Intake: ea 1000ml Intake: 03:30 IV: 1000ml; Total: 1000ml. ea Outcome: 03:16 Discharge ordered by MD. jason 03:31 Discharged to home ambulatory, with family. ea 03:31 Condition: stable 03:31 Discharge instructions given to patient, Instructed on discharge instructions, follow up and referral plans. Demonstrated understanding of instructions, follow-up care. 03:32 Patient left the ED. ea Signatures: Dispatcher [employer] EDMaurice Harris MD MD pkl Ballard, Brenda RN RN Willian Thibodeaux, Selina Willett cp, RN RN ea [place], MyKena 2 Jacob Hernandez ny2 Corrections: (The following items were deleted from the chart) 00:00 06/19 23:59 PMHx: Diabetes - NIDDM; chaparrita cheatham
[2021-06-20 03:39] VITALS: TEMP 97.5
[2021-06-20 03:41] VITALS: BP 121/72; O2SAT 98
--- NOTE | 2021-06-20 22:33 | RAD REPORT ---
EXAM DESCRIPTION: CT - Head Brain Wo Cont - 06/20/2021 6:25 am CLINICAL HISTORY: Seizure COMPARISON: CT Head/Brain Without Contrast 06/05/2021 report without images TECHNIQUE: Head/brain axial images acquired without contrast. Coronal and sagittal reformats created . Exam performed according to departmental dose-optimization program which includes automated exposur e control, adjustment of mA and/or kV according to patient size, and/or use of iterative reconstructi on technique. FINDINGS: No midline shift, mass effect, intracranial hemorrhage, or hydrocephalus. Brain parenchyma unremarkable. Right lateral ventricle frontal horn is moderately smaller than left (normal variant). Paranasal sinuses clear. Mastoid air cells clear. No skull fracture or significant skull lesion. IMPRESSION: Unremarkable CT head/brain without contrast. Electronically signed by: Catalino Aranda MD 06/20/2021 1:37 AM CDT Due to temporary technical issues with the PACS/Fluency reporting system, reports are being signed by the in house radiologists without review as a courtesy to insure prompt reporting. The interpreting radiologist is fully responsible for the content of the report.
== END 2021-06-20 03:32 | disposition home or self-care (01) ==
LOC: ER 23:42
DX: G40.909 Epilepsy, unspecified, not intractable, without status epilepticus (principal); I10 Essential (primary) hypertension; E11.9 Type 2 diabetes mellitus without complications; I50.9 Heart failure, unspecified; Z79.4 Long term (current) use of insulin
CPT/HCPCS: 36415; 70450; 80048; 80076; 80307; 80320; 80329; 81003; 81025; 85025; 85610; 85730; 93005; 96361; 96374; 99284; J1953; J7030